=== PATIENT | female | born 1960 | race Caucasian/White ===

== ENCOUNTER 2024-02-18 10:12 | Emergency (ER) | payer BC, OTHER ==
[2024-02-18 10:31] VITALS: BP 123/56; PULSE 65; RESP 18; TEMP 97.4; BMI 30.7
[2024-02-18] MEDS: LACTATED RINGERS SOLUTION 1000 ML INFUS.BAG IV ONE (11:19)
[2024-02-18 11:38] LABS: HEMOGLOBIN 13.6 G/dL (10.7-15.3); MCHC 33.3 g/dl (32.0-36.0); MEAN CELL VOLUME 96.2 fl (80-96); MEAN PLT VOLUME 12.7 fl (7.5-11.1); RBC 4.26 10^6/uL (3.60-5.2); WHITE BLOOD COUNT 7.9 10^3/uL (4.0-10.8)
[2024-02-18 11:43] LABS: ALBUMIN 4.1 g/dl (3.4-5.0); BILIRUBIN,TOTAL 0.5 mg/dl (0.2-1); CALCIUM 9.6 mg/dl (8.5-10.1); CREATININE 0.9 mg/dl (0.6-1.3); MAGNESIUM 1.8 mg/dL (1.8-2.4); PHOSPHOROUS 3.1 (2.5-4.9); POTASSIUM 4.3 mmol/L (3.5-5.1); TOT PROT 6.5 g/dl (6.4-8.2)
[2024-02-18 11:46] LABS: PLATELET ESTIMATE DECREASED
[2024-02-18 13:03] LABS: EPITHELIAL CELLS 0-5 /hpf
== END 2024-02-18 13:59 | disposition home or self-care (01) ==
LOC: FER 10:12
DX: R55 Syncope and collapse (principal); N39.0 Urinary tract infection, site not specified; R35.0 Frequency of micturition
CPT/HCPCS: 36415; 70450-TC; 72125-TC; 80053; 81003; 81015; 82962; 83735; 84100; 84484; 85027; 87086; 93005; 99285-25